=== PATIENT | male | born 1990 | race Caucasian/White ===

== ENCOUNTER 2017-03-29 05:58 | Emergency (ER) | payer OTHER ==
--- NOTE | ~2017-03-29 | CR142 ---
[facility] A Service of [facility] RADIOLOGY TEXT RESULTS PATIENT: MAICO MENDEZ LOCATION: [facility] : 86 UNIT #: [id number] AGE: [address]: Rosalind Fernandez APRN SEX: M ORDER DR: [id number] [facility] [address] [place], [place] [address] [id number] E MR#: [id number] Acc #: [id number] NAME: MAICO MENDEZ. : 1990 SEX: M STUDY DATE/TIME: 03/29/2017 6:15 UNIT: [facility] ROOM: STUDY DESCRIPTION: CR Hand Min 3 Views Rt Attending Physician: Rosalind Fernandez A.P.R.N. Ordering Physician: Ed Doctor [id number] [facility] Primary Care Physician: Primary Care Physician No MEDICAL IMAGING REPORT This report is preliminary unless electronic signature is present EXAM Right hand 3 views HISTORY Punched a wall this morning. Right hand pain. FINDINGS 3 views of the right hand demonstrates mildly comminuted fracture of the fifth metacarpal neck with slight volar angulation and displacement. Associated soft tissue swelling. Estimated about 3 mm of volar impaction and displacement. IMPRESSION Minimally impacted and volarly angulated fifth metacarpal neck fracture. Associated soft tissue swelling. Dictated by... Odessa Marie M.D. THIS IS AN ELECTRONICALLY VERIFIED REPORT Odessa Marie M.D. at 03/29/2017 3:56 PM CARTER/bonita TD: 03/29/2017 06:44 JOB #: [id number] MEDICAL IMAGING REPORT Page 1 of 1 COPY
[~2017-03-29 05:58] MED LIST: ACETAMINOPHEN650 M3 PO; ALDACTONE PO; ASPIRIN81 M2 PO; COREG6.25 MG PO; EC-NAPROSYN500 MG PO; FLEXERIL10 MG; FLEXERIL10 MG PO; LASIX20 MG PO; LISINOPRIL5 MG PO; NAPROXEN; NITROGLYCERIN0.4 MG SL; PREDNISONE; PREDNISONE10 MG PO; SIMVASTATIN40 MG PO
== END 2017-03-29 07:09 | disposition home or self-care (01) ==
LOC: CFTX 05:58
DX: S62.336A Displaced fracture of neck of fifth metacarpal bone, right hand, initial encounter for closed fracture (principal); F17.210 Nicotine dependence, cigarettes, uncomplicated; Z23 Encounter for immunization; W22.8XXA Striking against or struck by other objects, initial encounter; Y92.9 Unspecified place or not applicable
CPT/HCPCS: 29125; 73130; 90471; 90715; 99283